=== PATIENT | male | born 1980 | race Caucasian/White ===

== ENCOUNTER 2020-01-08 09:10 | Inpatient (IN) | payer OTHER ==
[2020-01-05 11:02] VITALS: BMI 27.5
[2020-01-08] MEDS ORDERED: DEXAMETHASONE SOD PHOSPHATE 4 MG/1 ML VIAL ONE ×2 (10:43→10:44)
[2020-01-08] MEDS ORDERED: morphine SULFATE/PF 0.5 MG/ML (2cc Syringe - QUVA) ONE (10:43)
[2020-01-08] MEDS ORDERED: fentaNYL CITRATE 250 MCG/5 ML VIAL ONE ×2 (10:43→14:07)
[2020-01-08] MEDS ORDERED: PROPOFOL 20 ML ONE ×13 (10:43→15:42)
[2020-01-08] MEDS ORDERED: ceFAZolin SODIUM 1 GM VIAL ONE (10:44)
[2020-01-08] MEDS ORDERED: SODIUM CHLORIDE 0.9% P/F 10 ML VIAL IJ ONE (10:44)
[2020-01-08] MEDS ORDERED: TRANEXAMIC ACID 1000 MG/10 ML VIAL ONE (10:45)
[2020-01-08] MEDS ORDERED: SUCCINYLCHOLINE CHLORIDE 200 MG/10 ML SYRINGE ONE (10:48)
[2020-01-08] MEDS ORDERED: ROCURONIUM BROMIDE 50 MG/5 ML SYRINGE ONE ×2 (10:48→16:38)
[2020-01-08] MEDS ORDERED: MIDAZOLAM HCL 2 MG/2 ML SINGLE DOSE VIAL ONE ×5 (10:56→14:07)
[2020-01-08] MEDS ORDERED: DEXMEDETOMIDINE HCL 200 MCG/2 ML IVPB ONE (13:35)
[2020-01-08] MEDS ORDERED: BUPIVACAINE LIPOSOME/PF (EXPAREL) 266 MG/20 ML VIAL ONE (13:42)
[2020-01-08] MEDS ORDERED: HEPARIN NA (PORCINE) 5,000 UNITS/ML 1ML VIAL ONE (13:45)
[2020-01-08] MEDS ORDERED: THROMBIN (BOVINE) 20,000 UNIT VIAL TP ONE (13:46)
[2020-01-08] MEDS ORDERED: VANCOMYCIN 1,000 MG VIAL (RESTRICTED TO ID ONLY) ONE (14:19)
[2020-01-08] MEDS ORDERED: VANCOMYCIN 1,000 MG VIAL (RESTRICTED TO ID ONLY) IVPB ONE (14:50)
[2020-01-08] MEDS ORDERED: ONDANSETRON 4 MG/2 ML VIAL IVPUSH PRN ×3 (15:06→18:19)
[2020-01-08] MEDS ORDERED: HYDROmorphone HCl 2 MG/ML VIAL IVPUSH PRN (15:07)
[2020-01-08] MEDS ORDERED: oxyCODONE HCL 5 MG TABLET PO PRN ×3 (15:09→18:19)
[2020-01-08] MEDS ORDERED: NALOXONE HCL 0.4 MG/ML VIAL IVPUSH PRN (15:09)
[2020-01-08] MEDS ORDERED: morphine SULFATE/PF 0.5 MG/ML (2cc Syringe - QUVA) IT ONE (15:09)
[2020-01-08] MEDS ORDERED: LACTATED RINGERS SOLUTION 1,000 ML IV SCH (15:15)
[2020-01-08] MEDS ORDERED: ACETAMINOPHEN 325 MG TABLET (FP) PO SCH (15:30)
[2020-01-08] MEDS ORDERED: ceFAZolin SODIUM 1 GM VIAL IVPB ONE (15:32)
[2020-01-08] MEDS ORDERED: NEOSTIGMINE METHYLSULFATE 0.5 MG/1 ML - 10 ML MDV ONE (16:45)
[2020-01-08] MEDS ORDERED: THROMBIN (BOVINE) 5,000 UNIT VIAL TP ONE (17:18)
--- NOTE | 2020-01-08 18:18 | PN ---
Progress Note (short form) - Note Progress Note: 39M s/p L5-S1 posterior lumbar interbody fusion with L5-S1 instrumented posterolateral arthrodesis POD #0. -Admit to ICU post-op. -Pain control: patient received pre-op TLIP block w/intrathecal duramorph; OK to use SAMPLE PATTERNMAKER if needed; transition to oral analgesia post-op; STRICTLY NO NSAID's. -DVT PPx: -Mechanical only: ROGERIO's, SCD's. -Chemical: None. -Incentive spirometry q15 min. -NPO until flatus. -Antonio care; d/c when ambulating. -Post-op Ancef x 3 doses. -PT/OT/Rehab, OOB. -WBAT B/L LE. -No bending, lifting (>5 lbs), or twisting for 9-12 months. -Care per ICU & medical hospitalist teams. -Discharge planning: f/u 7-10 days after discharge at [facility]; call for appointment; . -Will follow. Abelardo Davis MD (Orthopaedic Surgery).
--- NOTE | 2020-01-08 18:29 | OP ---
Operative Note - Note: Operative Date: 01/08/20 Pre-Operative Diagnosis: 1. L5-S1 intervertebral disc herniation 2. L5-S1 spondylotic radiculopathy 3. L5-S1 spinal stenosis with neurogenic claudication 4. Segmental instability (axial) L5-S1 with neuroforminal collapse & stenosis. SEVERITY OF ILLNESS: 4. Operation: 1. L5, S1 laminectomies & facetectomies. 2. L5-S1 discectomy. 3. L5 -S1 posterior lumbar interbody fusion. 4. L5-S1 posterolateral instrumentation. 5. L5-S1 posterolateral arthrodesis. 6. Bone autograft. 7. Bone allograft. 8. Bone marrow aspirate concentrate autograft. 9. Complex wound closure (10cm). Implants: Cage: RTI Fortilink 10mm Post-Operative Diagnosis: Same as Pre-op Surgeon: Abelardo Davis Fast Food Attendant: Dennis Davis Anesthesiologist/ENGLISH LANGUAGE LEARNER TUTOR: Annie Novak Anesthesia: General, Spinal Specimens Removed: L5-S1 disc Estimated Blood Loss (mls): 350 Drains & Tubes with Location: 1 x suprafascial HemoVac Blood Volume Replaced (mls): 150 (Cell Saver) Fluid Volume Replaced (mls): 1,500 (Crystalloid) Operative Report Dictated: Yes
[2020-01-08] MEDS ORDERED: HYDROmorphone HCl 2 MG/ML VIAL ONE (19:02)
[2020-01-08] MEDS: HYDROmorphone HCl 2 MG/ML VIAL IVPUSH PRN ×5 (19:10→19:55)
[2020-01-08] MEDS: ACETAMINOPHEN 1000 MG/100 ML VIAL (NON FORMULARY) IVPB SCH (19:10)
--- NOTE | 2020-01-08 19:33 | PN ---
Teaching Attending Note Name of Resident: Kayley Lopez ATTENDING PHYSICIAN STATEMENT I saw and evaluated the patient. I reviewed the resident's note and discussed the case with the resident. I agree with the resident's findings and plan as documented. SUBJECTIVE: We have been consulted for medical management of Mr. Naik who is postop Day 0 for "L5-S1 posterior lumbar interbody fusion with L5-S1 instrumented posterolateral arthrodesis". He is a 39 year old man with a PMH of L5-S1 disc herniation, spinal stenosis with neurogenic claudication, Afib (s/p ablation), GERD, HLD, Tobacco use and Low Back pain. Currently complaining of dry mouth and back pain. Denies fever, chills, headache, SOB, chest pain, dysuria or diarrhea. Denies alcohol or illicit drug use. No sick contacts or recent travels. On Xanax for Anxiety. No significant family history of chronic medical illness. OBJECTIVE: Vital Signs Period Temp Pulse Resp BP Sys/Coughlin Pulse Ox Last 24 Hr 98.0 F 84 20 111/71 96 HEENT: No Jaundice, eye redness or discharge, PERRLA, EOMI. Normocephalic, atraumatic. External ears are normal and hearing is grossly intact. No nasal discharge. Neck: Supple, nontender. No palpable adenopathy or thyromegaly. No JVD Chest: Good effort. Clear to auscultation and percussion. Heart: Regular. No S3, rub or murmur Abdomen: Not distended, soft, nontender and no HSM. No rebound or guarding. Normal bowel sounds. Ext: Peripheral pulses intact. No leg edema. Surgical wound dressed and no obvious bleeding. Skin: Warm and dry. No petechiae, rash or ecchymosis. Neuro: Alert. Oriented x3. CN 2-12 grossly intact. Sensation grossly intact in all four extremities and DTR are symmetric. Psych: Appropriate mood and affect. Good insight. Current Medications Generic Name Dose Route Start Last Admin Trade Name Freq PRN Reason Stop Dose Admin Acetaminophen 650 mg 01/08/20 15:30 Tylenol - PO Q6HPO LENNY Acetaminophen 1,000 mg 01/08/20 23:00 Ofirmev Injection - IVPB 01/09/20 23:01 Q8H [facility] Cefazolin Sodium/Dextrose 2 gm 01/08/20 23:00 Ancef 2 Gm Premixed Ivpb - IVPB 01/09/20 11:01 Q6H LENNY Diphenhydramine HCl 25 mg 01/08/20 15:09 Benadryl Injection - IVPUSH ONCE PRN FOR ITCHING Docusate Sodium 100 mg 01/08/20 22:00 Colace - PO BID LENNY Hydromorphone HCl 0.25 mg 01/08/20 15:07 Dilaudid Vial - IVPUSH ONCE PRN PAIN LEVEL 1-5 Hydromorphone HCl 0.5 mg 01/08/20 15:08 Dilaudid Vial - IVPUSH ONCE PRN PAIN LEVEL 6-10 Hydromorphone HCl 2 mg 01/08/20 15:19 Dilaudid Vial - IVPB Q3H PRN PAIN LEVEL 7 - 10 Lactated Ringer's 1,000 mls @ 75 mls/hr 01/08/20 15:15 Lactated Ringers Solution IV ASDIR [facility] Lactated Ringer's 1,000 mls @ 125 mls/hr 01/08/20 18:30 Lactated Ringers Solution IV ASDIR LENNY Naloxone HCl 0.4 mg 01/08/20 15:09 Narcan - IVPUSH ONCE PRN Sedation Ondansetron HCl 4 mg 01/08/20 15:06 Zofran Injection IVPUSH Q6H PRN NAUSEA AND/OR VOMITING Ondansetron HCl 4 mg 01/08/20 15:09 Zofran Injection IVPUSH ONCE PRN NAUSEA Ondansetron HCl 4 mg 01/08/20 18:19 Zofran Injection IVPUSH Q6H PRN NAUSEA AND/OR VOMITING Oxycodone HCl 10 mg 01/08/20 15:09 Roxicodone - PO Q3H PRN Mild Pain 1-3 Oxycodone HCl 15 mg 01/08/20 15:09 Roxicodone - PO Q3H PRN Moderate Pain 4-6 Oxycodone HCl 30 mg 01/09/20 15:09 Oxycontin - PO BID [facility] Pantoprazole Sodium 40 mg 01/08/20 22:00 Protonix - PO BID [facility] Home Medications Medication Instructions Recorded Alprazolam [Xanax] 2 mg PO BID 01/05/20 Cholecalciferol (Vitamin D3) 5,000 unit PO DAILY 01/05/20 [Vitamin D3] Cyanocobalamin [Vitamin B12 -] 500 mcg PO DAILY 01/05/20 [place]-3/Dha/Epa/Fish Oil [[place] 3 1 each PO DAILY 01/05/20 500 Softgel] Omeprazole 40 mg PO BID 01/05/20 Oxycodone HCl 20 mg PO TID 01/05/20 ASSESSMENT AND PLAN: 1. Postop Day 0 for L5-S1 posterior lumbar interbody fusion with L5-S1 instrumented posterolateral arthrodesis - Will implement all of the surgeon's postop recommendations including incentive spirometry q15 minutes, pack catheter management, pain management, avoidance of NSAIDS, NPO until flatus and IV Ancef x 3 doses. Will get CBC, EKG and CMP and continue IV fluid support. Continue telemetry monitoring for Afib. Will continue comprehensive care for all of patients comorbid conditions. 2. Tobacco Use Counseled on risks associated with tobacco use. We will provide patient all the necessary assistance to facilitate smoking cessation and prescribe Nicotine patch. 3. DVT prophylaxis - SCD, TEDs. 4. Advance directives - Full code
--- NOTE | 2020-01-08 20:33 | CONSULT ---
Consultation: REQUESTING PROVIDER: Dr. Davis CONSULT REQUEST: We have been asked to medically evaluate this patient for medical management HISTORY OF PRESENT ILLNESS: 39M PMH Afib s/p ablation and cardioversion, GERD, HLD, anxiety Low Back Pain who presents today s/p L5-S1 posterior lumbar interbody fusion w/ L5-S1 instrumental posterolateral arthrodesis. Pt has had worsening back pain over several years, with right leg paresthesias. Patient was controlling his pain with oxycodone, he has been on his current dose for 1 year. His pain has become debilatating which required his surgery. His medical history is significant for afib s/p 2 ablations in 2014 and 2018, and chemical cardioversion in 2019. He has had not had any episodes of arrhythmias since his last cardioversion. He has history of HLD which he manages with diet. His GERD is controlled with omperazole 40 mg BID. He has anxiety that is managed with xanax 2 mg PO BID. REVIEW OF SYSTEMS: CONSTITUTIONAL: Absent: fever, chills, diaphoresis, generalized weakness, malaise, loss of appetite, weight change HEENT: Absent: rhinorrhea, nasal congestion, throat pain, throat swelling, difficulty swallowing, mouth swelling, ear pain, eye pain, visual changes CARDIOVASCULAR: Absent: chest pain, syncope, palpitations, irregular heart rate, lightheadedness , peripheral edema RESPIRATORY: Absent: cough, shortness of breath, dyspnea with exertion, orthopnea, wheezing, stridor, hemoptysis GASTROINTESTINAL: Absent: abdominal pain, abdominal distension, nausea, vomiting, diarrhea, constipation, melena, hematochezia GENITOURINARY: Absent: dysuria, frequency, urgency, hesitancy, hematuria, flank pain, genital pain MUSCULOSKELETAL: Absent: myalgia, arthralgia, joint swelling, back pain, neck pain SKIN: Absent: rash, itching, pallor HEMATOLOGIC/IMMUNOLOGIC: Absent: easy bleeding, easy bruising, lymphadenopathy, frequent infections ENDOCRINE: Absent: unexplained weight gain, unexplained weight loss, heat intolerance, cold intolerance NEUROLOGIC: Present: weak in his lower legs. Absent: headache, dizziness, unsteady gait, seizure, mental status changes, bladder or bowel incontinence PSYCHIATRIC: Absent: anxiety, depression, suicidal or homicidal ideation, hallucinations. PHYSICAL EXAMINATION Vital Signs - 24 hr 01/08/20 01/08/20 01/08/20 10:40 10:46 18:33 Temperature 98.0 F 97.9 F Pulse Rate 84 78 Respiratory 20 18 Rate Blood Pressure 111/71 112/51 L O2 Sat by Pulse 96 96 Oximetry (%) 01/08/20 01/08/20 01/08/20 18:45 19:00 19:15 Temperature Pulse Rate 87 82 84 Respiratory 14 16 14 Rate Blood Pressure 100/46 L 100/51 L 100/47 L O2 Sat by Pulse 98 98 100 Oximetry (%) GENERAL: Awake, alert, and fully oriented, slightly lethargic due to effects of anesthesia. HEAD: Normal with no signs of trauma. EYES: Pupils equal, round and reactive to light, extraocular movements intact, sclera anicteric, conjunctiva clear. No lid lag. EARS, NOSE, THROAT: Ears normal, nares patent, oropharynx clear without exudates. Moist mucous membranes. NECK: Normal range of motion, supple without lymphadenopathy, JVD, or masses. LUNGS: Breath sounds equal, clear to auscultation bilaterally. No wheezes, and no crackles. No accessory muscle use. HEART: Regular rate and rhythm, normal S1 and S2 without murmur, rub or gallop. ABDOMEN: Soft, nontender, not distended, no guarding, no rebound, no masses. MUSCULOSKELETAL: Normal range of motion in upper extremities. Pain with movement of lower extremities. No bony deformities or tenderness. Drain in place. UPPER EXTREMITIES: 2+ pulses, warm, well-perfused. No cyanosis. No clubbing. Cap refill <2 seconds. No peripheral edema. 5/5 strength b/l LOWER EXTREMITIES: 2+ pulses, warm, well-perfused. No calf tenderness. No peripheral edema. 3/5 strength b/l NEUROLOGICAL: Cranial nerves II-XII intact. Normal speech. Normal gait. PSYCHIATRIC: Cooperative. Good eye contact. Appropriate mood and affect. SKIN: Warm, dry, normal turgor, no rashes or lesions noted. Laboratory Results - last 24 hr 01/08/20 01/08/20 09:19 11:00 Blood Type A NEGATIVE A NEGATIVE Antibody Screen Negative Active Medications Generic Name Dose Route Start Last Admin Trade Name Freq PRN Reason Stop Dose Admin Acetaminophen 650 mg 01/08/20 15:30 Tylenol - PO Q6HPO [facility] Acetaminophen 1,000 mg 01/08/20 23:00 Ofirmev Injection - IVPB 01/09/20 23:01 Q8H LENNY Cefazolin Sodium/Dextrose 2 gm 01/08/20 23:00 Ancef 2 Gm Premixed Ivpb - IVPB 01/09/20 11:01 Q6H LENNY Diphenhydramine HCl 25 mg 01/08/20 15:09 Benadryl Injection - IVPUSH ONCE PRN FOR ITCHING Docusate Sodium 100 mg 01/08/20 22:00 Colace - PO BID LENNY Hydromorphone HCl 0.25 mg 01/08/20 15:07 Dilaudid Vial - IVPUSH ONCE PRN PAIN LEVEL 1-5 Hydromorphone HCl 0.5 mg 01/08/20 15:08 Dilaudid Vial - IVPUSH ONCE PRN PAIN LEVEL 6-10 Hydromorphone HCl 2 mg 01/08/20 15:19 Dilaudid Vial - IVPB Q3H PRN PAIN LEVEL 7 - 10 Lactated Ringer's 1,000 mls @ 75 mls/hr 01/08/20 15:15 Lactated Ringers Solution IV ASDIR LENNY Lactated Ringer's 1,000 mls @ 125 mls/hr 01/08/20 18:30 Lactated Ringers Solution IV ASDIR LENNY Naloxone HCl 0.4 mg 01/08/20 15:09 Narcan - IVPUSH ONCE PRN Sedation Ondansetron HCl 4 mg 01/08/20 15:06 Zofran Injection IVPUSH Q6H PRN NAUSEA AND/OR VOMITING Ondansetron HCl 4 mg 01/08/20 15:09 Zofran Injection IVPUSH ONCE PRN NAUSEA Ondansetron HCl 4 mg 01/08/20 18:19 Zofran Injection IVPUSH Q6H PRN NAUSEA AND/OR VOMITING Oxycodone HCl 10 mg 01/08/20 15:09 Roxicodone - PO Q3H PRN Mild Pain 1-3 Oxycodone HCl 15 mg 01/08/20 15:09 Roxicodone - PO Q3H PRN Moderate Pain 4-6 Oxycodone HCl 30 mg 01/09/20 15:09 Oxycontin - PO BID [facility] Pantoprazole Sodium 40 mg 01/08/20 22:00 Protonix - PO BID [facility] ASSESSMENT/PLAN: 39M PMH Afib s/p ablation and cardioversion, GERD, HLD, anxiety Low Back Pain who presents today s/p L5-S1 posterior lumbar interbody fusion w/ L5-S1 instrumental posterolateral arthrodesis. POD #0 1) Low Back Pain s/p L5-S1 posterior lumbar interbody fusion w/ L5-S1 instrumental posterolateral arthrodesis. POD #0 - EBL 350 ml, 1500 ml Fluids given - Pain control- dialudid and oxycodone - NPO until flatus, LR @ 75 ml/hr - CBC, CMP, EKG STAT - PT - D/C Antonio when ambulating - Incentive spirometer 2) Hx of Afib - controlled s/p ablation and cardioversion 3) Hx of Anxiety - Xanax 2mg PO BID PRN 4) Hx GERD - Continue protonix 40 mg PO BID F: LR @ 75 ml/hr E: CMP stat N: NPO until flatus Dispo: We will continue to follow the patient. Thank you for this consultative opportunity. Visit type - Emergency Visit Emergency Visit: No - New Patient This patient is new to me today: Yes Date on this admission: 01/08/20 - Critical Care Critical Care patient: No ATTENDING PHYSICIAN STATEMENT I saw and evaluated the patient. I reviewed the resident's note and discussed the case with the resident. I agree with the resident's findings and plan as documented. SUBJECTIVE: OBJECTIVE: ASSESSMENT AND PLAN:
[2020-01-08] MEDS: DOCUSATE SODIUM 100 MG CAPSULE (FP) PO SCH (21:08)
[2020-01-08] MEDS: PANTOPRAZOLE 40 MG TABLET PO SCH (21:10)
[2020-01-08] MEDS: HYDROmorphone HCl 2 MG/ML VIAL IVPB PRN (21:11)
[2020-01-08] MEDS: LACTATED RINGERS SOLUTION 1,000 ML IV SCH (21:28)
[2020-01-08 21:57] LABS: BASO % 0.4 % (0-2.0); EOS % 0.1 % (0-4.5); HEMATOCRIT 38.4 % (35.4-49); LYMPH % 10.5 % (8-40); MCH 28.1 pg (25.7-33.7); MCHC 33.8 g/dl (32.0-35.9); MEAN PLT VOLUME 7.7 fl (7.5-11.1); MONO % 2.2 % (3.8-10.2); NEUT % 86.8 % (42.8-82.8); PLATELET COUNT 313 K/MM3 (134-434); RBC 4.63 M/mm3 (4.00-5.60); RDW 13.7 % (11.9-15.9); WHITE BLOOD COUNT 15.5 K/mm3 (4.0-10.0)
[2020-01-08] MEDS ORDERED: PATIENT'S OWN MEDICATION (NON-FORMULARY) (Omeprazole [Omeprazole] 40 MG) PO SCH (22:00)
[2020-01-08] MEDS: ALPRAZolam 1 MG TABLET PO SCH (22:38)
[2020-01-08 22:39] LABS: ALBUMIN 3.9 g/dl (3.4-5.0); BILIRUBIN,TOTAL 0.3 mg/dL (0.2-1); BLOOD UREA NITROGEN 15.1 mg/dL (7-18); CALCIUM 9.2 mg/dL (8.5-10.1); CREATININE 0.9 mg/dL (0.55-1.3); POTASSIUM 4.4 mmol/L (3.5-5.1); TOT PROT 6.5 g/dl (6.4-8.2)
[2020-01-08] MEDS: ceFAZolin 2 GRAM PREMIX BAG IVPB SCH (22:39)
[2020-01-09] MEDS: HYDROmorphone HCl 2 MG/ML VIAL IVPB PRN ×3 (06:48→20:30)
[2020-01-09] MEDS: ceFAZolin 2 GRAM PREMIX BAG IVPB SCH ×2 (06:50→10:34)
[2020-01-09] MEDS: ACETAMINOPHEN 1000 MG/100 ML VIAL (NON FORMULARY) IVPB SCH ×3 (07:54→22:00)
[2020-01-09] MEDS: oxyCODONE HCL 5 MG TABLET PO PRN ×2 (08:11→17:57)
[2020-01-09 08:14] LABS: HEMATOCRIT 37.3 % (35.4-49); HEMOGLOBIN 12.8 GM/dL (11.7-16.9); MCHC 34.4 g/dl (32.0-35.9); MEAN CELL VOLUME 81.3 fl (80-96); MEAN PLT VOLUME 8.5 fl (7.5-11.1); PLATELET COUNT 306 K/MM3 (134-434); RBC 4.58 M/mm3 (4.00-5.60); RDW 13.8 % (11.9-15.9); WHITE BLOOD COUNT 15.5 K/mm3 (4.0-10.0)
[2020-01-09 08:28] LABS: BLOOD UREA NITROGEN 13.6 mg/dL (7-18); CALCIUM 9.1 mg/dL (8.5-10.1); CREATININE 0.7 mg/dL (0.55-1.3); POTASSIUM 4.2 mmol/L (3.5-5.1)
[2020-01-09] MEDS: DOCUSATE SODIUM 100 MG CAPSULE (FP) PO SCH ×2 (09:36→21:16)
[2020-01-09] MEDS: ALPRAZolam 1 MG TABLET PO SCH ×3 (09:36→21:16)
[2020-01-09] MEDS: PANTOPRAZOLE 40 MG TABLET PO SCH ×2 (09:36→21:16)
--- NOTE | 2020-01-09 11:54 | PN ---
Teaching Attending Note Name of Resident: Harrison Jang ATTENDING PHYSICIAN STATEMENT I saw and evaluated the patient. I reviewed the resident's note and discussed the case with the resident. I agree with the resident's findings and plan as documented. SUBJECTIVE: Patient complains of back pain. OBJECTIVE: Vital Signs Period Temp Pulse Resp BP Sys/Coughlin Pulse Ox Last 24 Hr 97.7 F-98.2 F 72-90 14-26 100-122/46-75 96-100 HEART: S1S2, RRR LUNGS: Clear ABDOMEN: Soft, non-tender, non-distended, normal BS EXTREMITIES: No edema Laboratory Results - last 24 hr 01/08/20 01/08/20 01/08/20 11:00 21:40 21:40 WBC 15.5 H RBC 4.63 Hgb 13.0 Hct 38.4 MCV 83.0 MCH 28.1 MCHC 33.8 RDW 13.7 Plt Count 313 MPV 7.7 Absolute Neuts (auto) 13.4 H Neutrophils % 86.8 H Lymphocytes % 10.5 Monocytes % 2.2 L Eosinophils % 0.1 Basophils % 0.4 Nucleated RBC % 0 Sodium 137 Potassium 4.4 Chloride 103 Carbon Dioxide 29 Anion Gap 6 L BUN 15.1 Creatinine 0.9 Est GFR (CKD-EPI)AfAm 122.52 Est GFR (CKD-EPI)NonAf 105.71 Random Glucose 134 H Calcium 9.2 Total Bilirubin 0.3 AST 19 ALT 20 Alkaline Phosphatase 55 Total Protein 6.5 Albumin 3.9 Blood Type A NEGATIVE 01/09/20 01/09/20 05:20 05:20 WBC 15.5 H RBC 4.58 Hgb 12.8 Hct 37.3 MCV 81.3 MCH 28.0 MCHC 34.4 RDW 13.8 Plt Count 306 MPV 8.5 D Absolute Neuts (auto) Neutrophils % Lymphocytes % Monocytes % Eosinophils % Basophils % Nucleated RBC % Sodium 136 Potassium 4.2 Chloride 101 Carbon Dioxide 26 Anion Gap 9 BUN 13.6 Creatinine 0.7 Est GFR (CKD-EPI)AfAm 135.86 Est GFR (CKD-EPI)NonAf 117.22 Random Glucose 114 H Calcium 9.1 Total Bilirubin AST ALT Alkaline Phosphatase Total Protein Albumin Blood Type Current Medications Generic Name Dose Route Start Last Admin Trade Name Freq PRN Reason Stop Dose Admin Acetaminophen 1,000 mg 01/08/20 23:00 01/09/20 07:54 Ofirmev Injection - IVPB 01/09/20 23:01 1,000 mg Q8H LENNY Administration Alprazolam 2 mg 01/08/20 22:15 01/09/20 09:36 Xanax PO Not Given BID LENNY Diphenhydramine HCl 25 mg 01/08/20 15:09 Benadryl Injection - IVPUSH ONCE PRN FOR ITCHING Docusate Sodium 100 mg 01/08/20 22:00 01/09/20 09:36 Colace - PO 100 mg BID LENNY Administration Hydromorphone HCl 2 mg 01/08/20 15:19 01/09/20 06:48 Dilaudid Vial - IVPB 2 mg Q3H PRN Administration PAIN LEVEL 7 - 10 Lactated Ringer's 1,000 mls @ 125 mls/hr 01/08/20 18:30 01/08/20 21:28 Lactated Ringers Solution IV 125 mls/hr ASDIR LENNY Administration Naloxone HCl 0.4 mg 01/08/20 15:09 Narcan - IVPUSH ONCE PRN Sedation Ondansetron HCl 4 mg 01/08/20 15:09 Zofran Injection IVPUSH ONCE PRN NAUSEA Oxycodone HCl 10 mg 01/08/20 15:09 Roxicodone - PO Q3H PRN Mild Pain 1-3 Oxycodone HCl 15 mg 01/08/20 15:09 01/09/20 08:11 Roxicodone - PO 15 mg Q3H PRN Administration Moderate Pain 4-6 Oxycodone HCl 30 mg 01/09/20 15:09 Oxycontin - PO BID LENNY Pantoprazole Sodium 40 mg 01/08/20 22:00 01/09/20 09:36 Protonix - PO 40 mg BID LENNY Administration ASSESSMENT AND PLAN: This is a 39 year old man with a history of atrial fib, cardioversion and ablation, hyperlipidemia, GERD, anxiety, lumbar disc herniation and spinal stenosis who presented for lumbar spine surgery. 1. L5-S1 disc herniation with spinal stenosis, radiculopathy, neurogenic claudication - s/p L5, S1 laminectomies and facetectomies; L5-S1 discectomy; L5-S1 posterior lumbar interbody fusion, L5-S1 posterolateral instrumentation; L5-S1 posterolateral arthrodesis; bone autograft; bone allograft; bone marrow aspirate concentrate autograft; complex wound closure (10cm) on 01/07 - Pain control - Tolerating diet - Ambulation - Incentive spirometer 2. History of atrial fibrillation, cardioversion and ablation 3. Hyperlipidemia 4. Anxiety - Continue Xanax 5. GERD - Continue Protonix
--- NOTE | 2020-01-09 12:56 | PN ---
Physical Exam: SUBJECTIVE: Patient seen and examined. Pt anxious and agitated due to pain. Nurse notified to give him pain medications, notified nurse pt needs incentive dina q15 mins. OBJECTIVE: Vital Signs Period Temp Pulse Resp BP Sys/Coughlin Pulse Ox Last 24 Hr 97.7 F-98.7 F 72-94 14-26 100-122/46-75 96-100 GENERAL: The patient is awake, alert, and fully oriented, agitated in pain. LUNGS: Breath sounds equal, clear to auscultation bilaterally, no wheezes, no crackles, no accessory muscle use. HEART: Regular rate and rhythm, S1, S2 without murmur, rub or gallop. ABDOMEN: Soft, nontender, nondistended, hypoactive bowel sounds EXTREMITIES: 2+ pulses, warm, well-perfused, no edema. NEUROLOGICAL: unable to assess given pain PSYCH: anxious mood SKIN: deshawn drain in place draining serosanguinous fluid, back yellow seal in place no fluid drainage noted. Laboratory Results - last 24 hr 01/08/20 01/08/20 01/09/20 21:40 21:40 05:20 WBC 15.5 H 15.5 H RBC 4.63 4.58 Hgb 13.0 12.8 Hct 38.4 37.3 MCV 83.0 81.3 MCH 28.1 28.0 MCHC 33.8 34.4 RDW 13.7 13.8 Plt Count 313 306 MPV 7.7 8.5 D Absolute Neuts (auto) 13.4 H Neutrophils % 86.8 H Lymphocytes % 10.5 Monocytes % 2.2 L Eosinophils % 0.1 Basophils % 0.4 Nucleated RBC % 0 Sodium 137 Potassium 4.4 Chloride 103 Carbon Dioxide 29 Anion Gap 6 L BUN 15.1 Creatinine 0.9 Est GFR (CKD-EPI)AfAm 122.52 Est GFR (CKD-EPI)NonAf 105.71 Random Glucose 134 H Calcium 9.2 Total Bilirubin 0.3 AST 19 ALT 20 Alkaline Phosphatase 55 Total Protein 6.5 Albumin 3.9 01/09/20 05:20 WBC RBC Hgb Hct MCV MCH MCHC RDW Plt Count MPV Absolute Neuts (auto) Neutrophils % Lymphocytes % Monocytes % Eosinophils % Basophils % Nucleated RBC % Sodium 136 Potassium 4.2 Chloride 101 Carbon Dioxide 26 Anion Gap 9 BUN 13.6 Creatinine 0.7 Est GFR (CKD-EPI)AfAm 135.86 Est GFR (CKD-EPI)NonAf 117.22 Random Glucose 114 H Calcium 9.1 Total Bilirubin AST ALT Alkaline Phosphatase Total Protein Albumin Active Medications Generic Name Dose Route Start Last Admin Trade Name Freq PRN Reason Stop Dose Admin Acetaminophen 1,000 mg 01/08/20 23:00 01/09/20 07:54 Ofirmev Injection - IVPB 01/09/20 23:01 1,000 mg Q8H LENNY Administration Alprazolam 2 mg 01/08/20 22:15 01/09/20 09:36 Xanax PO Not Given BID LENNY Diphenhydramine HCl 25 mg 01/08/20 15:09 Benadryl Injection - IVPUSH ONCE PRN FOR ITCHING Docusate Sodium 100 mg 01/08/20 22:00 01/09/20 09:36 Colace - PO 100 mg BID LENNY Administration Hydromorphone HCl 2 mg 01/08/20 15:19 01/09/20 06:48 Dilaudid Vial - IVPB 2 mg Q3H PRN Administration PAIN LEVEL 7 - 10 Lactated Ringer's 1,000 mls @ 125 mls/hr 01/08/20 18:30 01/08/20 21:28 Lactated Ringers Solution IV 125 mls/hr ASDIR LENNY Administration Naloxone HCl 0.4 mg 01/08/20 15:09 Narcan - IVPUSH ONCE PRN Sedation Ondansetron HCl 4 mg 01/08/20 15:09 Zofran Injection IVPUSH ONCE PRN NAUSEA Oxycodone HCl 10 mg 01/08/20 15:09 Roxicodone - PO Q3H PRN Mild Pain 1-3 Oxycodone HCl 15 mg 01/08/20 15:09 01/09/20 08:11 Roxicodone - PO 15 mg Q3H PRN Administration Moderate Pain 4-6 Oxycodone HCl 30 mg 01/09/20 15:09 Oxycontin - PO BID [facility]ENNY Pantoprazole Sodium 40 mg 01/08/20 22:00 01/09/20 09:36 Protonix - PO 40 mg BID LENNY Administration ASSESSMENT/PLAN: 39M PMH Afib s/p ablation and cardioversion, GERD, HLD, anxiety Low Back Pain who presents today s/p L5-S1 posterior lumbar interbody fusion w/ L5-S1 instrumental posterolateral arthrodesis. POD #1 1) Low Back Pain s/p L5-S1 posterior lumbar interbody fusion w/ L5-S1 instrumental posterolateral arthrodesis. POD #1 - deshawn draining serosanguinous fluid - Pain control- dialudid and oxycodone prn - advacned to regular diet, pack removed LR @ 75 ml/hr - CBC, CMP, EKG STAT - PT recs appreciated - Incentive spirometer 2) Hx of Afib - controlled s/p ablation and cardioversion 3) Hx of Anxiety - Xanax 2mg PO BID PRN 4) Hx GERD - Continue protonix 40 mg PO BID F: LR @ 125 ml/hr E: replete prn N: regular diet Dispo: We will continue to follow the patient. Thank you for this consultative opportunity. Visit type - Emergency Visit Emergency Visit: No - New Patient This patient is new to me today: Yes Date on this admission: 01/09/20 - Critical Care Critical Care patient: No - Discharge Referral Referred to [facility] Med [facility] No ATTENDING PHYSICIAN STATEMENT I saw and evaluated the patient. I reviewed the resident's note and discussed the case with the resident. I agree with the resident's findings and plan as documented. SUBJECTIVE: OBJECTIVE: ASSESSMENT AND PLAN:
[2020-01-09] MEDS: oxyCODONE HCL 10 MG SUSTAINED ACTING TABLET PO SCH (15:36)
[2020-01-09] MEDS: LACTATED RINGERS SOLUTION 1,000 ML IV SCH (21:17)
[2020-01-10] MEDS: oxyCODONE HCL 10 MG SUSTAINED ACTING TABLET PO SCH ×3 (00:03→22:04)
[2020-01-10] MEDS: HYDROmorphone HCl 2 MG/ML VIAL IVPB PRN ×2 (01:50→06:06)
[2020-01-10] MEDS: oxyCODONE HCL 5 MG TABLET PO PRN ×2 (03:09→17:20)
[2020-01-10 07:56] LABS: BASO % 0.5 % (0-2.0); EOS % 0.4 % (0-4.5); HEMATOCRIT 36.5 % (35.4-49); HEMOGLOBIN 12.5 GM/dL (11.7-16.9); LYMPH % 20.5 % (8-40); MCH 28.3 pg (25.7-33.7); MCHC 34.4 g/dl (32.0-35.9); MEAN CELL VOLUME 82.4 fl (80-96); MEAN PLT VOLUME 8.5 fl (7.5-11.1); MONO % 7.9 % (3.8-10.2); NEUT % 70.7 % (42.8-82.8); PLATELET COUNT 304 K/MM3 (134-434); RBC 4.43 M/mm3 (4.00-5.60); RDW 13.6 % (11.9-15.9); WHITE BLOOD COUNT 17.3 K/mm3 (4.0-10.0)
[2020-01-10] MEDS ORDERED: LACTATED RINGERS SOLUTION 1,000 ML/1,000 ML INFUS.BAG IV ONE (08:15)
[2020-01-10 08:32] LABS: ALBUMIN 3.6 g/dl (3.4-5.0); BILIRUBIN,TOTAL 0.5 mg/dL (0.2-1); BLOOD UREA NITROGEN 12.1 mg/dL (7-18); CALCIUM 8.8 mg/dL (8.5-10.1); CREATININE 0.8 mg/dL (0.55-1.3); POTASSIUM 3.9 mmol/L (3.5-5.1); TOT PROT 6.6 g/dl (6.4-8.2)
--- NOTE | 2020-01-10 08:34 | PN ---
Physical Exam: SUBJECTIVE: Patient seen and examined c/o RLE carol horse pain, cramping. Pt said it started last night. He also developed fever of 101.8 Tmax that dropped to [address] Banegas notified stating this is expected post-op and recommended no further w/u be done at this time. Notified nurse to provide incentive spirometer at bedside for patient. OBJECTIVE: Vital Signs Period Temp Pulse Resp BP Sys/Coughlin Pulse Ox Last 24 Hr 98.7 F-101.8 F 93-112 18-20 97-132/42-74 95-98 GENERAL: The patient is awake, alert, and fully oriented, agitated in pain. LUNGS: Breath sounds equal, clear to auscultation bilaterally, no wheezes, no crackles, no accessory muscle use. HEART: Regular rate and rhythm, S1, S2 without murmur, rub or gallop. ABDOMEN: Soft, nontender, nondistended, hypoactive bowel sounds EXTREMITIES: 2+ pulses, warm, well-perfused, no edema. RLE cramp like pain, negative homans sign, nonedematous, erythematous, or swollen. NEUROLOGICAL: unable to assess given pain PSYCH: anxious mood SKIN: deshawn drain in place draining serosanguinous fluid. Laboratory Results - last 24 hr 01/10/20 01/10/20 05:32 05:32 WBC 17.3 H RBC 4.43 Hgb 12.5 Hct 36.5 MCV 82.4 MCH 28.3 MCHC 34.4 RDW 13.6 Plt Count 304 MPV 8.5 Absolute Neuts (auto) 12.3 H Neutrophils % 70.7 Lymphocytes % 20.5 D Monocytes % 7.9 D Eosinophils % 0.4 D Basophils % 0.5 Nucleated RBC % 0 Sodium 137 Potassium 3.9 Chloride 103 Carbon Dioxide 26 Anion Gap 8 BUN 12.1 Creatinine 0.8 Est GFR (CKD-EPI)AfAm 128.60 Est GFR (CKD-EPI)NonAf 110.96 Random Glucose 115 H Calcium 8.8 Total Bilirubin 0.5 AST 21 ALT 19 Alkaline Phosphatase 53 Total Protein 6.6 Albumin 3.6 Active Medications Generic Name Dose Route Start Last Admin Trade Name Freq PRN Reason Stop Dose Admin Alprazolam 2 mg 01/08/20 22:15 01/09/20 21:16 Xanax PO 2 mg BID LENNY Administration Diphenhydramine HCl 25 mg 01/08/20 15:09 Benadryl Injection - IVPUSH ONCE PRN FOR ITCHING Docusate Sodium 100 mg 01/08/20 22:00 01/09/20 21:16 Colace - PO 100 mg BID LENNY Administration Hydromorphone HCl 2 mg 01/08/20 15:19 01/10/20 06:06 Dilaudid Vial - IVPB 2 mg Q3H PRN Administration PAIN LEVEL 7 - 10 Lactated Ringer's 1,000 mls @ 125 mls/hr 01/08/20 18:30 01/09/20 21:17 Lactated Ringers Solution IV 125 mls/hr ASDIR LENNY Administration Lactated Ringer's 1,000 ml in 1,000 mls @ 500 mls/hr 01/10/20 08:15 Lactated Ringers Solution IV 01/10/20 10:14 ONCE ONE Naloxone HCl 0.4 mg 01/08/20 15:09 Narcan - IVPUSH ONCE PRN Sedation Ondansetron HCl 4 mg 01/08/20 15:09 Zofran Injection IVPUSH ONCE PRN NAUSEA Oxycodone HCl 10 mg 01/08/20 15:09 Roxicodone - PO Q3H PRN Mild Pain 1-3 Oxycodone HCl 15 mg 01/08/20 15:09 01/10/20 03:09 Roxicodone - PO 15 mg Q3H PRN Administration Moderate Pain 4-6 Oxycodone HCl 30 mg 01/09/20 15:09 01/10/20 00:03 Oxycontin - PO Not Given BID LENNY Pantoprazole Sodium 40 mg 01/08/20 22:00 01/09/20 21:16 Protonix - PO 40 mg BID LENNY Administration ASSESSMENT/PLAN: 39M PMH Afib s/p ablation and cardioversion, GERD, HLD, anxiety Low Back Pain who presents today s/p L5-S1 posterior lumbar interbody fusion w/ L5-S1 instrumental posterolateral arthrodesis. POD #2 1) Low Back Pain s/p L5-S1 posterior lumbar interbody fusion w/ L5-S1 instrumental posterolateral arthrodesis. POD #2 - deshawn draining serosanguinous fluid - Pain control- dialudid and oxycodone prn, now complaining of RT leg cramp like pain, will await surgery's recs. - advanced to regular diet, pack removed, discontinued fluids. - PT stating he walked 150 ft. - Incentive spirometer q 15 mins. 2) Hx of Afib - controlled s/p ablation and cardioversion 3) Hx of Anxiety - Xanax 2mg PO BID PRN 4) Hx GERD - Continue protonix 40 mg PO BID F: pt eating and drinking no standing fluids at this time. E: replete prn N: regular diet Dispo: We will continue to follow the patient. Thank you for this consultative opportunity. Visit type - Emergency Visit Emergency Visit: No - New Patient This patient is new to me today: No - Critical Care Critical Care patient: No - Discharge Referral Referred to [facility] Med P.C.: No ATTENDING PHYSICIAN STATEMENT I saw and evaluated the patient. I reviewed the resident's note and discussed the case with the resident. I agree with the resident's findings and plan as documented. SUBJECTIVE: OBJECTIVE: ASSESSMENT AND PLAN:
--- NOTE | 2020-01-10 09:19 | OP ---
DATE OF OPERATION: DATE OF DICTATION: 01/09/2020 SURGEON: Abelardo Davis MD INCOME TAX PREPARER: Dennis Davis MD PREOPERATIVE DIAGNOSIS: Disk prolapse with spinal stenosis, right L5 radiculopathy, and segmental instability L5-S1 (transitional vertebra noted). POSTOPERATIVE DIAGNOSIS: Disk prolapse with spinal stenosis, right L5 radiculopathy, and segmental instability L5-S1 (transitional vertebra noted). OPERATION PERFORMED: 1. L5, S1 bilateral laminectomies and facetectomies. (24425-45, 53257-47) 2. L5-S1 posterolateral arthrodesis & posterior lumbar interbody fusion (PLIF). (39455) 3. L5-S1 insertion biomechanical device. (11113) 4. L5-S1 bilateral posterior instrumentation. (33530-41) 5. Morselized bone autograft. (21039) 6. Morselized bone allograft. () 7. Bone marrow aspiration for bone grafting. (42004) 8. Complex wound closure, 4 layers, 10cm. (36207 x 2) ANESTHESIA: General. ANTIBIOTICS GIVEN: Two grams of Kefzol and 1 g vancomycin preoperative, 1 g Kefzol given intraoperatively. BLOOD LOSS: About 350 mL, approximately 125 mL of Cell Saver was given back to the patient. OPERATION DETAILS: Patient was brought to the operating room, correctly identified. Under general anesthesia, placed prone on the J Carlos table. Bony points properly padded. Eyes attended to appropriately. Neural monitoring was applied. The skin was prepped and draped with betadine scrub solution, wiped off with alcohol, and DuraPrep applied. A window drape applied. Localization of the skin with a lateral fluoroscopic x-ray was performed. The skin incision was made through the skin and subcutaneous tissue to expose the tip of the spinous process of L3 and the tip of the spinous process of S1. Once this had been performed, the subperiosteal dissection was utilized. The entire subperiosteal space was opened. The dissection was taken across the lamina of the facet joints to expose the facets of L5-S1 as well as L4-L5. The muscle was dissected off of the transverse processes and the interspinous plane packed with sponges appropriately, this for hemostasis as well as to develop a plane for future bone grafting. Verification of the level was confirmed using anatomical guidelines as well as lateral fluoroscopic x-rays. We were operating on the less mobile segment. We labeled this L5-S1. The lamina of L5 was resected using Leksell rongeurs as well as Kerrison up-cuts. The theca was exposed. The dissection was taken out laterally by resecting all of the bone in the following manner: Using an osteotome, the pars interarticularis as well as the inferior facet was split. This was then imploded into the canal and removed, freeing the fragment of bone of all fibrous tissue. This was performed both the left and right-hand sides. The theca was held out of harm's way using a [place]. Using Kerrisons, the entire superior facetectomy, both left and right-hand sides, were performed, freeing the entire nerve roots of L5-S1 and clearly visualized, extending all of the way out into the appropriate sacral foramina. Once this had been performed, the disk of L5-S1 was identified. We retracted it from [id number]. Epidural veins were cauterized with bipolar Bovie. The disk, with difficulty, was entered using an 11-blade. We used fluoroscopic guidance to help us to delineate the exact entry for the shut-down disk. It was originally noted on the MR scan preoperatively. Once this had been performed, with the guidance of the image, marcelo were utilized. Shaving initially was difficult, but carefully we were able to open up the disk space with removal of the disk material, which was sent to the lab for histopathologic confirmation. Serrated curettes were also utilized in order to free the soft tissue from the endplates; that will the cranial endplate of S1 and the caudal endplate of L5. Shaving was up to a size 9. All disk material was removed. Once this had been performed, the disk was packed with bone that was the posterior element bone that was resected as described earlier. This was milled in a [place] and the pure bone was packed into the interbody space to thus complete an anterior arthrodesis, done from behind. Once this had been performed, a Fortilink size 10-mm cage was taped into position, opening up the disk space beautifully, as seen on the lateral fluoroscopic x-rays. Once this had been performed, the pedicles of L5-S1 were entered using a 4.5 drill. We used anatomic guidelines as well as lateral fluoroscopic x-ray to help for accurate screw placement in the best quality bone, mainly under the endplate. Once the screws had been inserted, the screws were tested with neuromonitoring and found to be completely safe and well above the neural safe zone. Amplitude level of 10, in fact all were above 20 except for one, which was the right S1 screw was 15. Once the screws had been delineated and seen to be well seated both clinically radiologically as well as electronically, two 40-mm pre- formed rods were applied to the tulips. These were contoured into lordosis to encourage lordosis. The caps were tightened appropriately. The torque device tightened the caps completely. Then 60 mL of bone marrow was harvested from the left posterior ileum with a Jamshidi needle. This was spun down for the CD34 cells. This was mixed with allograft bone. This was a combination of stem cells from the bone marrow aspirate concentrate and also mixed together with the appropriate PRP fluid to provide a rich paste of bone, which was a combination of allograft as well as autograft accordingly. This was packed into the intertransverse plane once the planes had been opened, freed of all soft tissue, and thoroughly lavaged. The muscle was appropriately trimmed for fragmented muscle and the wounds were closed as follows, performing a complex wound closure in 4 layers. Muscle with 1 Vicryl, fascia 1 Vicryl, subcutaneous tissue 1 and 2-0 Vicryl in 2 layers, skin with 3-0 Monocryl with Steri-Strips. Drainage: One-eighth inch Hemovac pulled out superficially x1. OVERALL COMMENT: Operation went extremely well. No complications. MD RAF Morales/[id number] [facility]OSPITALJaqueline
[2020-01-10] MEDS: DOCUSATE SODIUM 100 MG CAPSULE (FP) PO SCH ×2 (09:51→22:04)
[2020-01-10] MEDS: PANTOPRAZOLE 40 MG TABLET PO SCH ×2 (09:54→22:04)
[2020-01-10] MEDS: ALPRAZolam 1 MG TABLET PO SCH ×2 (09:54→22:04)
[2020-01-10] MEDS ORDERED: SENNOSIDES 8.6MG TABLET (FP) PO SCH (10:00)
--- NOTE | 2020-01-10 11:12 | PN ---
Teaching Attending Note Name of Resident: Harrison Jang ATTENDING PHYSICIAN STATEMENT I saw and evaluated the patient. I reviewed the resident's note and discussed the case with the resident. I agree with the resident's findings and plan as documented. SUBJECTIVE: Patient complains of back and right anterior thigh pain. He had temp 101.8 overnight. OBJECTIVE: Vital Signs Period Temp Pulse Resp BP Sys/Coughlin Pulse Ox Last 24 Hr 98.9 F-101.8 F 101-112 20-20 97-138/42-74 95 HEART: S1S2, tachycardic LUNGS: Clear ABDOMEN: Soft, non-tender, non-distended, normal BS EXTREMITIES: No edema Laboratory Results - last 24 hr 01/10/20 01/10/20 05:32 05:32 WBC 17.3 H RBC 4.43 Hgb 12.5 Hct 36.5 MCV 82.4 MCH 28.3 MCHC 34.4 RDW 13.6 Plt Count 304 MPV 8.5 Absolute Neuts (auto) 12.3 H Neutrophils % 70.7 Lymphocytes % 20.5 D Monocytes % 7.9 D Eosinophils % 0.4 D Basophils % 0.5 Nucleated RBC % 0 Sodium 137 Potassium 3.9 Chloride 103 Carbon Dioxide 26 Anion Gap 8 BUN 12.1 Creatinine 0.8 Est GFR (CKD-EPI)AfAm 128.60 Est GFR (CKD-EPI)NonAf 110.96 Random Glucose 115 H Calcium 8.8 Total Bilirubin 0.5 AST 21 ALT 19 Alkaline Phosphatase 53 Total Protein 6.6 Albumin 3.6 Current Medications Generic Name Dose Route Start Last Admin Trade Name Freq PRN Reason Stop Dose Admin Alprazolam 2 mg 01/08/20 22:15 01/10/20 09:54 Xanax PO 2 mg BID LENNY Administration Diphenhydramine HCl 25 mg 01/08/20 15:09 Benadryl Injection - IVPUSH ONCE PRN FOR ITCHING Docusate Sodium 100 mg 01/08/20 22:00 01/10/20 09:51 Colace - PO 100 mg BID LENNY Administration Hydromorphone HCl 2 mg 01/08/20 15:19 01/10/20 06:06 Dilaudid Vial - IVPB 2 mg Q3H PRN Administration PAIN LEVEL 7 - 10 Lactated Ringer's 1,000 mls @ 125 mls/hr 01/08/20 18:30 01/09/20 21:17 Lactated Ringers Solution IV 125 mls/hr ASDIR LENNY Administration Naloxone HCl 0.4 mg 01/08/20 15:09 Narcan - IVPUSH ONCE PRN Sedation Ondansetron HCl 4 mg 01/08/20 15:09 Zofran Injection IVPUSH ONCE PRN NAUSEA Oxycodone HCl 10 mg 01/08/20 15:09 Roxicodone - PO Q3H PRN Mild Pain 1-3 Oxycodone HCl 15 mg 01/08/20 15:09 01/10/20 03:09 Roxicodone - PO 15 mg Q3H PRN Administration Moderate Pain 4-6 Oxycodone HCl 30 mg 01/09/20 15:09 01/10/20 09:51 Oxycontin - PO 30 mg BID LENNY Administration Pantoprazole Sodium 40 mg 01/08/20 22:00 01/10/20 09:54 Protonix - PO 40 mg BID LENNY Administration ASSESSMENT AND PLAN: This is a 39 year old man with a history of atrial fib, cardioversion and ablation, hyperlipidemia, GERD, anxiety, lumbar disc herniation and spinal stenosis who presented for lumbar spine surgery. 1. L5-S1 disc herniation with spinal stenosis, radiculopathy, neurogenic claudication - s/p L5, S1 laminectomies and facetectomies; L5-S1 discectomy; L5-S1 posterior lumbar interbody fusion, L5-S1 posterolateral instrumentation; L5-S1 posterolateral arthrodesis; bone autograft; bone allograft; bone marrow aspirate concentrate autograft; complex wound closure (10cm) on 01/07 - Pain control - Tolerating diet - Ambulation - Incentive spirometer - Monitor temp 2. History of atrial fibrillation, cardioversion and ablation 3. Hyperlipidemia 4. Anxiety - Continue Xanax 5. GERD - Continue Protonix
--- NOTE | 2020-01-10 14:44 | PATH ---
Surgical Pathology Report Patient Name: THUY TORO Med. Rec. #: [id number] /Age/Gender: 1980 (Age: 39) / M Account: [id number] Location: [facility] TELEMETRY U Taken: 01/08/2020 Received: 01/09/2020 Reported: 01/10/2020 Physicians: Abelardo Davis M.D. Specimen(s) Received L5-S1 Clinical History Lumbar spinal stenosis Final Diagnosis L5-S1 DISCS, DISCECTOMY: PORTIONS OF BONE AND CARTILAGE WITH FOCAL DEGENERATIVE CHANGE. Electronically Signed Ana Laura Nobles M.D. Gross Description Received in formalin labeled "L5-S1," is a 3.0 x 2.3 x 0.3 cm aggregate of pro-stewart fragments of fibrocartilaginous tissue. A merchandising representative portion is submitted in one cassette. 01/09/202001/09/2020
[2020-01-10] MEDS: ACETAMINOPHEN 325 MG TABLET (FP) PO PRN (19:38)
[2020-01-11 07:35] LABS: BASO % 0.5 % (0-2.0); EOS % 0.8 % (0-4.5); HEMATOCRIT 35.6 % (35.4-49); HEMOGLOBIN 12.3 GM/dL (11.7-16.9); LYMPH % 27.7 % (8-40); MCH 28.3 pg (25.7-33.7); MCHC 34.5 g/dl (32.0-35.9); MEAN CELL VOLUME 82.1 fl (80-96); MEAN PLT VOLUME 8.5 fl (7.5-11.1); MONO % 10.9 % (3.8-10.2); NEUT % 60.1 % (42.8-82.8); PLATELET COUNT 281 K/MM3 (134-434); RBC 4.34 M/mm3 (4.00-5.60); WHITE BLOOD COUNT 16.4 K/mm3 (4.0-10.0)
[2020-01-11] MEDS: DOCUSATE SODIUM 100 MG CAPSULE (FP) PO SCH ×2 (09:22→23:06)
[2020-01-11] MEDS: PANTOPRAZOLE 40 MG TABLET PO SCH ×2 (09:22→22:50)
[2020-01-11] MEDS: oxyCODONE HCL 10 MG SUSTAINED ACTING TABLET PO SCH ×2 (09:22→22:50)
[2020-01-11] MEDS: ALPRAZolam 1 MG TABLET PO SCH ×2 (09:22→22:51)
[2020-01-11] MEDS ORDERED: ACETAMINOPHEN 325 MG TABLET (FP) PO PRN (14:06)
[2020-01-11] MEDS ORDERED: SODIUM CHLORIDE 500 ML IV STA (14:07)
[2020-01-11] MEDS: ACETAMINOPHEN 325 MG TABLET (FP) PO PRN (14:34)
--- NOTE | 2020-01-11 15:03 | PN ---
Progress Note, Physician History of Present Illness: 39M PMH Afib s/p ablation and cardioversion, GERD, HLD, anxiety Low Back Pain who presents today s/p L5-S1 posterior lumbar interbody fusion w/ L5-S1 in strumental posterolateral arthrodesis. Today: Patient seen and examined at bedside Feels ready to go home Has been ambulating, and eating regularly Denies any feelings of fever , chills , dyspnea, N/V Had some complaints of some constipation and some anxiety about being in hospital environment Discussed pain regimen with patient and plan . - Current Medication List Current Medications: Active Medications Acetaminophen (Tylenol -) 650 mg PO Q4H PRN PRN Reason: FEVER Last Admin: 01/11/20 14:34 Dose: 650 mg Documented by: Alprazolam (Xanax) 2 mg PO BID [facility] Last Admin: 01/11/20 09:22 Dose: 2 mg Documented by: Docusate Sodium (Colace -) 100 mg PO BID [facility] Last Admin: 01/11/20 09:22 Dose: 100 mg Documented by: Sodium Chloride (Normal Saline -) 500 mls @ 500 mls/hr IV ASDIR STA Stop: 01/11/20 15:06 Last Admin: 01/11/20 14:34 Dose: 500 mls/hr Documented by: Ondansetron HCl (Zofran Injection) 4 mg IVPUSH ONCE PRN PRN Reason: NAUSEA Oxycodone HCl (Oxycontin -) 30 mg PO BID [facility] Last Admin: 01/11/20 09:22 Dose: 30 mg Documented by: Pantoprazole Sodium (Protonix -) 40 mg PO BID [facility] Last Admin: 01/11/20 09:22 Dose: 40 mg Documented by: Senna (Senna -) 1 tab PO BID [facility] - Objective Vital Signs: Vital Signs Temperature 100.6 F H 01/11/20 14:00 Pulse Rate 100 H 01/11/20 14:00 Respiratory Rate 18 01/11/20 14:00 Blood Pressure 108/64 01/11/20 14:00 O2 Sat by Pulse Oximetry (%) 97 01/11/20 09:00 Constitutional: Yes: Well Nourished, No Distress Cardiovascular: Yes: WNL Respiratory: Yes: WNL Gastrointestinal: Yes: WNL Labs: CBC, BMP 01/11/20 05:22 01/10/20 05:32 Impression/Plan Impression/Plan: 1- Low Back Pain s/p L5-S1 posterior lumbar interbody fusion w/ L5-S1 instrumental posterolateral arthrodesis. - deshawn draining serosanguinous fluid - Pain control- dialudid d/c and Oxycodone prn, now complaining of RT leg cramp like pain, will await surgery's recs. - advanced to regular diet, pack removed, discontinued fluids. - PT -ambulated 250 ft. - Incentive spirometer q 15 mins. 2- Hx of Afib - HR controlled s/p ablation and cardioversion 3- Hx of Anxiety - Xanax 2mg PO BID PRN 4- Hx GERD - Continue protonix 40 mg PO BID 5. PT DVT Px- ambulating and SCD/ROGERIO per neurosurgery recs Visit type - Emergency Visit Emergency Visit: Yes ED Registration Date: 01/08/20 Care time: The patient presented to the Emergency Department on the above date and was hospitalized for further evaluation of their emergent condition. - New Patient This patient is new to me today: Yes Date on this admission: 01/11/20 - Critical Care Critical Care patient: No - Discharge Referral Referred to [facility] Med P.C.: Yes
--- NOTE | 2020-01-11 15:51 | PN ---
Physical Exam: SUBJECTIVE: Patient seen and examined. Fever 100.3 overnight later in day up to 100.6, bolused with fluids and will assess, pt still in mild pain. Wants to go home. OBJECTIVE: Vital Signs Period Temp Pulse Resp BP Sys/Coughlin Pulse Ox Last 24 Hr 99.2 F-100.6 F 98-107 18-20 108-126/63-74 97-97 GENERAL: The patient is awake, alert, and fully oriented, less agitated not in pain. LUNGS: Breath sounds equal, clear to auscultation bilaterally, no wheezes, no crackles, no accessory muscle use. HEART: Regular rate and rhythm, S1, S2 without murmur, rub or gallop. ABDOMEN: Soft, nontender, nondistended, hypoactive bowel sounds. EXTREMITIES: 2+ pulses, warm, well-perfused, no edema. NEUROLOGICAL: unable to assess given pain PSYCH: anxious mood improving SKIN: deshawn drain in place draining serosanguinous fluid. back wrapped in dressing. Laboratory Results - last 24 hr 01/11/20 05:22 WBC 16.4 H RBC 4.34 Hgb 12.3 Hct 35.6 MCV 82.1 MCH 28.3 MCHC 34.5 RDW 14.0 Plt Count 281 MPV 8.5 Absolute Neuts (auto) 9.8 H Neutrophils % 60.1 Lymphocytes % 27.7 D Monocytes % 10.9 H Eosinophils % 0.8 D Basophils % 0.5 Nucleated RBC % 0 Active Medications Generic Name Dose Route Start Last Admin Trade Name Freq PRN Reason Stop Dose Admin Acetaminophen 650 mg 01/10/20 19:17 01/11/20 14:34 Tylenol - PO 650 mg Q4H PRN Administration FEVER Alprazolam 2 mg 01/08/20 22:15 01/11/20 09:22 Xanax PO 2 mg BID LENNY Administration Docusate Sodium 100 mg 01/08/20 22:00 01/11/20 09:22 Colace - PO 100 mg BID LENNY Administration Ondansetron HCl 4 mg 01/08/20 15:09 Zofran Injection IVPUSH ONCE PRN NAUSEA Oxycodone HCl 30 mg 01/09/20 15:09 01/11/20 09:22 Oxycontin - PO 30 mg BID LENNY Administration Pantoprazole Sodium 40 mg 01/08/20 22:00 01/11/20 09:22 Protonix - PO 40 mg BID LENNY Administration Senna 1 tab 01/11/20 22:00 Senna - PO BID LENNY ASSESSMENT/PLAN: 39M PMH Afib s/p ablation and cardioversion, GERD, HLD, anxiety Low Back Pain who presents today s/p L5-S1 posterior lumbar interbody fusion w/ L5-S1 instrum ental posterolateral arthrodesis. POD #2 1) Low Back Pain s/p L5-S1 posterior lumbar interbody fusion w/ L5-S1 instrumental posterolateral arthrodesis. POD #2 - deshawn draining serosanguinous fluid and will be removed tn per Dr. Banegas and dc in AM likely. - Pain control- dialudid dc'd and oxycodone prn dc'd, continue standing 30 BID - advanced to regular diet, pack removed, discontinued fluids. - PT stating he walked 250 ft improving with walker. - Incentive spirometer q 15 mins. 2) Hx of Afib - controlled s/p ablation and cardioversion 3) Hx of Anxiety - Xanax 2mg PO BID PRN 4) Hx GERD - Continue protonix 40 mg PO BID F: pt eating and drinking no standing fluids at this time. E: replete prn N: regular diet Dispo: We will continue to follow the patient. Thank you for this consultative opportunity. Visit type - Emergency Visit Emergency Visit: No - New Patient This patient is new to me today: No - Critical Care Critical Care patient: No - Discharge Referral Referred to [facility] Med P.C.: No ATTENDING PHYSICIAN STATEMENT I saw and evaluated the patient. I reviewed the resident's note and discussed the case with the resident. I agree with the resident's findings and plan as documented. SUBJECTIVE: OBJECTIVE: ASSESSMENT AND PLAN:
--- NOTE | 2020-01-11 19:43 | PN ---
Progress Note (short form) - Note Progress Note: POD#3 Doing well C/O mild incisional pain No leg pain Walking in the hallway Wants to go home. Apyrexial Vitals as per chart. CVS Stable Resp AE equal bilaterally Abd Soft no distension Passed flatus Eating regular diet MSkeletal Wound dry Drain removed Neuro At baseline ASSESS Doing well PLAN D/C home tomorrow Pain MX Stop smoking Discussed with the patient Mobilize walk lie down No bending as discussed with the patient See in office 1week [phone]
[2020-01-11] MEDS: SENNOSIDES 8.6MG TABLET (FP) PO SCH (22:51)
[2020-01-12 05:45] VITALS: BP 129/72; PULSE 98; TEMP 98.1
[2020-01-12] MEDS: oxyCODONE HCL 10 MG SUSTAINED ACTING TABLET PO SCH (10:04)
[2020-01-12] MEDS: ALPRAZolam 1 MG TABLET PO SCH (10:06)
[2020-01-12] MEDS: SENNOSIDES 8.6MG TABLET (FP) PO SCH (10:06)
[2020-01-12] MEDS: PANTOPRAZOLE 40 MG TABLET PO SCH (10:07)
[2020-01-12] MEDS: DOCUSATE SODIUM 100 MG CAPSULE (FP) PO SCH (10:07)
--- NOTE | 2020-01-12 11:19 | PN ---
Progress Note, Physician History of Present Illness: 39M PMH Afib s/p ablation and cardioversion, GERD, HLD, anxiety Low Back Pain who presents today s/p L5-S1 posterior lumbar interbody fusion w/ L5-S1 in strumental posterolateral arthrodesis. Today: Patient seen and examined ambulating in the ryan Feels ready to go home Has been ambulating, and eating regularly Denies any feelings of fever , chills , dyspnea, N/V Discussed pain regimen with patient and plan . Patient has f/u in 1 wk with and also will see his therapist. - Current Medication List Current Medications: Active Medications Acetaminophen (Tylenol -) 650 mg PO Q4H PRN PRN Reason: FEVER Last Admin: 01/11/20 14:34 Dose: 650 mg Documented by: Alprazolam (Xanax) 2 mg PO BID [facility] Last Admin: 01/12/20 10:06 Dose: 2 mg Documented by: Docusate Sodium (Colace -) 100 mg PO BID [facility] Last Admin: 01/12/20 10:07 Dose: 100 mg Documented by: Oxycodone HCl (Oxycontin -) 30 mg PO BID [facility] Last Admin: 01/12/20 10:04 Dose: 30 mg Documented by: Pantoprazole Sodium (Protonix -) 40 mg PO BID [facility] Last Admin: 01/12/20 10:07 Dose: 40 mg Documented by: Senna (Senna -) 1 tab PO BID [facility] Last Admin: 01/12/20 10:06 Dose: 1 tab Documented by: - Objective Vital Signs: Vital Signs Temperature 98.1 F 01/12/20 05:44 Pulse Rate 98 H 01/12/20 05:44 Respiratory Rate 20 01/12/20 08:35 Blood Pressure 129/72 01/12/20 05:44 O2 Sat by Pulse Oximetry (%) 97 01/12/20 08:35 Labs: CBC, BMP 01/11/20 05:22 01/10/20 05:32 Impression/Plan Impression/Plan: 1- Low Back Pain s/p L5-S1 posterior lumbar interbody fusion w/ L5-S1 instrumental posterolateral arthrodesis. - Pain control- Oxycodone prn - PT -ambulated 250 ft. - Incentive spirometer q 15 mins. - DVT ruled out on U/S 2- Hx of Afib - HR controlled s/p ablation and cardioversion 3- Hx of Anxiety - Xanax 2mg PO BID PRN 4- Hx GERD - Continue protonix 40 mg PO BID 5. PT DVT Px- ambulating and SCD/ROGERIO per neurosurgery recs Discussed with patient to return to ED if any concern or fevers/chills/dyspnea , concern with healing wound care. Visit type - New Patient This patient is new to me today: No - Critical Care Critical Care patient: No - Discharge Referral Referred to [facility] Med P.C.: No
--- NOTE | 2020-01-12 13:37 | DS ---
Physical Exam: SUBJECTIVE: Patient seen and examined. No acute events or complaints. Nenaambar removed deshawn drain pts pain controlled and able to ambulate. OBJECTIVE: Vital Signs Period Temp Pulse Resp BP Sys/Coughlin Pulse Ox Last 24 Hr 98.1 F-100.6 F 96-101 18-20 108-161/64-72 97-97 PHYSICAL EXAM GENERAL: The patient is awake, alert, and fully oriented, in no acute distress. LUNGS: Breath sounds equal, clear to auscultation bilaterally, no wheezes, no crackles, no accessory muscle use. HEART: Regular rate and rhythm, S1, S2 without murmur, rub or gallop. ABDOMEN: Soft, nontender, nondistended, normoactive bowel sounds EXTREMITIES: 2+ pulses, warm, well-perfused, no edema. NEUROLOGICAL: Cranial nerves II through XII grossly intact. Normal speech, gait not observed. PSYCH: Normal mood, normal affect. SKIN: Wound dry, drain removed. LABS HOSPITAL COURSE: Date of Admission:01/08/20 This gentleman was admitted for lumbar spine surgery with Dr. Davis. He consulted us as the primary team post op, pt spikd a fever during the admission up to 101.8 but due to post op for the surgery. Dr. Davis will follow up with this patient after he is discharged in 1 week to assess wound etc. Pt medically stable for dc. Pt states he does not need pain meds to go home with and he will continue his home pain regimen until his surgical pain subsides and follow up with his pain mgmt doctor. He lives with his gilfriend who intends to take care of him while at home. He walked 230 ft with PT, anxiety will be controlled with his xanax 2mg BID. Date of Discharge: 01/12/20 Minutes to complete discharge: 35 Discharge Summary Problems reviewed: Yes Reason For Visit: SPINAL STENOSIS, LUMBAR REGION WITH NEUROGENIC CLA Condition: Improved - Instructions Diet, Activity, Other Instructions: You were admitted for a back surgery. You were seen by your surgeon (Dr. Davis) who has now removed the drain and feels you are stable enough for discharge with close follow up in his office. You should follow up with him in 1 week to assess the wound and dressing. You should follow up with your primary care doctor in 1 week to let him know the procedure you underwent and how you are feeling. Please do NOT take any NSAIDs for pain. You may take Tylenol for fever or pain. Please follow up with your pain doctor to continue your pain medication regimen. Recommendations Please use your assistive device (rollator walker) to help you ambulate for now until you regain your strength. Please do not smoke. NO bending. You should return to the ER if you have any acute worsening of your current symptoms or fevers, chills, chest pain, calf tenderness, weakness in your legs, or bowel/bladder incontinence. Referrals: Abelardo Davis MD [Staff Physician] - 1 Week Disposition: HOME - Home Medications Comprehensive Discharge Medication List: Ambulatory Orders Alprazolam [Xanax] 2 mg PO TID 01/05/20 Cholecalciferol (Vitamin D3) [Vitamin D3] 5,000 unit PO DAILY 01/05/20 Cyanocobalamin [Vitamin B12 -] 500 mcg PO DAILY 01/05/20 Oxycodone HCl 20 mg PO TID 01/05/20 Zolpidem Tartrate [Ambien] 1 tab PO DAILY 01/09/20 Walker [Ultra-Light Rollator] 1 each MC DAILY #1 each 01/10/20 This patient is new to me today: No Emergency Visit: No Critical Care patient: No - Discharge Referral Referred to [facility] No ATTENDING PHYSICIAN STATEMENT I saw and evaluated the patient. I reviewed the resident's note and discussed the case with the resident. I agree with the resident's findings and plan as documented. SUBJECTIVE: OBJECTIVE: ASSESSMENT AND PLAN:
== END 2020-01-12 11:36 | disposition home or self-care (01) | DRG 304 ==
LOC: JSAMEDAYSX 09:10 → J4W 20:45
PROVIDERS: ADMIT Orthopaedic Surgery Orthopaedic Surgery of the Spine; ATTEND Internal Medicine
PROC: 0SG30AJ Fusion of Lumbosacral Joint with Interbody Fusion Device, Posterior Approach, Anterior Column, Open Approach (ICD-10-PCS; principal; 2020-01-09)
PROC: 0SG307J Fusion of Lumbosacral Joint with Autologous Tissue Substitute, Posterior Approach, Anterior Column, Open Approach (ICD-10-PCS; 2020-01-09)
PROC: 0SB40ZZ Excision of Lumbosacral Disc, Open Approach (ICD-10-PCS; 2020-01-09)
PROC: 07DR3ZX Extraction of Iliac Bone Marrow, Percutaneous Approach, Diagnostic (ICD-10-PCS; 2020-01-09)
PROC: B01BZZZ Fluoroscopy of Spinal Cord (ICD-10-PCS; 2020-01-09)
PROC: 4A1004G Monitoring of Central Nervous Electrical Activity, Intraoperative, Open Approach (ICD-10-PCS; 2020-01-09)
DX: M51.17 Intervertebral disc disorders with radiculopathy, lumbosacral region (principal); E78.5 Hyperlipidemia, unspecified; F41.9 Anxiety disorder, unspecified; R50.82 Postprocedural fever; R00.0 Tachycardia, unspecified; K21.9 Gastro-esophageal reflux disease without esophagitis; M48.062 Spinal stenosis, lumbar region with neurogenic claudication; I48.91 Unspecified atrial fibrillation; M48.07 Spinal stenosis, lumbosacral region
CPT/HCPCS: 36415; 72100-TC-FY; 76000-TC-FY; 80048; 80053; 85025; 85027; 86850; 86900; 86901; 88304-TC; 93970-TC; 94760; 97116-GP; 97161-GP; J0131; J1644